=== PATIENT | female | born 1980 | race Caucasian/White ===

== ENCOUNTER 2024-02-28 18:18 | Emergency (ER) | payer MEDICAID, SELFPAY ==
[2024-02-28 18:19] VITALS: BMI 20.3
[2024-02-28 19:29] VITALS: BP 136/89; PULSE 93; RESP 18; TEMP 36.9; O2SAT 98
--- NOTE | 2024-02-28 19:43 | PD.EDBACK ---
ED Back Injury Pain RME/HPI General Chief Complaint: Back Pain/Injury Stated Complaint: SEVERE LOWER BACK & NECK PAIN; NUMBNESS TO HANDS Time Seen by Provider: 02/28/24 18:23 Arrival date/time: 02/28/24 18:18 43F with history of DDD lumbar surgery about 7 months ago presents to ED with 1 week of worsening pain. Patient usually takes [place] 10s, but they aren't working it. Patient just wants meds and declines diagnostics. Patient hasn't had follow-up with [place] surgeon for a few months due to loss of insurance. Limitations: no limitations Related Data Home Medications ?Medication ?Instructions ?Recorded ?Confirmed duloxetine 60 mg capsule,delayed 60 mg PO QDAY 04/06/22 04/25/22 release progesterone micronized 200 mg 200 mg PO QHS 04/06/22 04/25/22 capsule propranolol 20 mg tablet 20 mg PO TID 04/06/22 04/25/22 zolpidem 5 mg tablet 5 mg PO QHS PRN 04/06/22 04/25/22 Previous Rx's ?Medication ?Instructions ?Recorded albuterol sulfate 90 mcg/actuation 2 puff inhalation Q6H PRN 12/04/22 aerosol inhaler (Ventolin HFA) shortness of breath or wheezing #8.5 grams azithromycin 500 mg tablet See Rx Instructions PO .COMPLEX #6 12/04/22 tabs Allergies Allergy/AdvReac Type Severity Reaction Status Date / Time No Known Allergies Allergy Verified 02/28/24 18:24 Review of Systems Review of Systems Systems Reviewed: All systems reviewed, normal except as documented Constitutional Constitutional: Reports system reviewed and no additional complaints, except as documented, Denies fever(s) and Denies headache(s) ENT Ears, Nose, Mouth, and Throat: Denies disequilibrium and Denies headache(s) Cardiovascular Cardiovascular: Reports system reviewed and no additional complaints, except as documented, Denies chest pain and Denies dyspnea Respiratory Respiratory: Reports system reviewed and no additional complaints, except as documented, Denies cough and Denies dyspnea Gastrointestinal Gastrointestinal: Reports system reviewed and no additional complaints, except as documented, Denies abdominal pain, Denies nausea and Denies vomiting Musculoskeletal Musculoskeletal: Reports as per HPI and Reports back pain Neurologic Neurologic: Reports system reviewed and no additional complaints, except as documented, Denies confusion, Denies disequilibrium and Denies headache(s) Psychiatric Psychiatric: Denies confusion Past Medical History Past Medical History CARDIAC: Negative Cardiac Disorders or Congestive Heart Failure RESPIRATORY: Negative Chronic Obstructive Pulmonary Disease (COPD) or Asthma GENITOURINARY: Negative Renal Disease MUSCULOSKELETAL: Positive Musculoskeletal Disorders and Fibromyalgia ENDOCRINE: Negative Diabetes Mellitus Type 1 or Diabetes Mellitus Type 2 HEMATOLOGIC: Positive Anemia; Negative Sickle Cell Disease OTHER HISTORY: Negative Blood Transfusions Social History SMOKING STATUS: Never smoker SUBSTANCE USE: does not use ED Exam General Limitations: Present no limitations General appearance: Present alert and in no apparent distress Head Head exam: Present atraumatic Eye Eye exam: Present normal appearance, PERRL and EOMI ENT ENT exam: Present normal exam, normal oropharynx and mucous membranes moist Neck Neck exam: Present normal inspection, full ROM and trachea midline Chest Chest inspection: Present normal inspection and symmetric chest wall rise Respiratory Respiratory exam: Present normal lung sounds bilaterally Cardiovascular Cardiovascular exam: Present regular rate, normal rhythm and normal heart sounds Abdominal Exam Abdominal exam: Present soft and normal bowel sounds Extremities Exam Extremities exam: Present normal inspection and full ROM Back Exam Back exam: Present full ROM and other (back brace) Neurological Exam Neurological exam: Present alert, oriented X3 and CN II-XII intact Psychiatric Psychiatric exam: Present normal affect and normal mood Skin Skin exam: Present warm, dry, intact and normal color Course Quality Measures none Orders Category Date Time Status CYCLObenzaPRINE [Flexeril] Med 02/28/24 19:36 Discontinued 5 mg PO X1 ONE Diazepam [Valium] Med 02/28/24 20:52 Discontinued 10 mg PO X1 ONE Gabapentin [Neurontin] Med 02/28/24 19:36 Discontinued 300 mg PO X1 ONE Morphine Inj Med 02/28/24 20:52 Discontinued 5 mg IM X1 ONE Vital Signs Vital signs: Vital Signs Temperature 98.5 F 02/28/24 19:29 Pulse Rate 93 02/28/24 19:29 Respiratory Rate 18 02/28/24 19:29 Blood Pressure 136/89 H 02/28/24 19:29 Pulse Oximetry (%) 98 02/28/24 19:29 Oxygen Delivery Method Room Air 02/28/24 19:29 O2 at 98% on RA and WNLs Back Pain / Injury MDM Narrative MDM Narrative:: 43F with history of DDD lumbar surgery about 7 months ago presents to ED with 1 week of worsening pain. Patient usually takes [place] 10s, but they aren't working it. Patient just wants meds and declines diagnostics. Patient hasn't had follow-up with [place] surgeon for a few months due to loss of insurance. Physical exam reveals patient in back brace. Gait normal. ROM of extremities and neck normal. Patient is afebrile, calm, and alert. Meds and activities counselor given. Patient data External records reviewed:: [facility] previous records Clinical information provided by:: patient Social determinants that could affect healthcare access:: none Patient has the following chronic illnesses:: back surgery How is presenting disease/condition affected by chronic disease/condition?: exacerbated by Evaluation data The following diagnostics were reviewed and interpreted by me:: other (specify) (none) Lab and/or radiology exams considered but not ordered:: not ordered Interpretation Summary: n/a Medications / Prescriptions Medications or Prescriptions considered but not ordered:: ordered Medication administrations:: Medication Administration History Discontinued Medications Cyclobenzaprine HCl (Cyclobenzaprine 5 Mg Tablet) 5 mg PO X1 ONE Stop: 02/28/24 19:37 Last Admin: 02/28/24 19:45 Dose: 5 mg Documented By: GM Diazepam (Diazepam 5 Mg Tablet) 10 mg PO X1 ONE Stop: 02/28/24 20:53 Last Admin: 02/28/24 21:03 Dose: 10 mg Documented By: OA Gabapentin (Gabapentin 300 Mg Capsule) 300 mg PO X1 ONE Stop: 02/28/24 19:37 Last Admin: 02/28/24 19:45 Dose: 300 mg Documented By: GM Morphine Sulfate (Morphine Sulf Inj 10 Mg/Ml Vial) 5 mg IM X1 ONE Stop: 02/28/24 20:53 Last Admin: 02/28/24 21:02 Dose: 5 mg Documented By: OA above Consultations Consultation(s) initiated? (list below): No Diagnosis Differential diagnosis back pain/injury: lumbar radiculopathy, sciatica, strain of lumbar region, renal colic, pyelonephritis, thoracic back pain, AAA, discitis and other (back pain) Most likely diagnosis given after review of the tests above:: back pain Admission Indicated Admission indicated?: not indicated Admission Request Was there a request for admission?: No Disposition Plan Disposition Plan: Discharge Discharge Attestation Discharge Attestation: The patient and all family members were given an opportunity to ask questions and understood the discharge instructions. Discharge instructions specifically effects, indications for sooner follow up or return to the emergency department, and the expected course of current diagnosis. Patient condition: Stable Discharge Plan Plan Patient Disposition: HOME (Self Care) Disposition Comment: STable Prescriptions/Referrals Prescriptions/Med Rec: No Action propranolol 20 mg tablet 20 mg PO TID duloxetine 60 mg capsule,delayed release(DR/EC) 60 mg PO QDAY progesterone micronized 200 mg capsule 200 mg PO QHS zolpidem 5 mg tablet 5 mg PO QHS PRN albuterol sulfate [Ventolin HFA] 90 mcg/actuation HFA aerosol inhaler 2 puff inhalation Q6H PRN (Reason: shortness of breath or wheezing) Qty: 8.5 0RF azithromycin 500 mg tablet See Rx Instructions .ROUTE .COMPLEX Qty: 6 0RF Rx Instructions: take 500 mg today (day 1), then 250 mg for 4 days (days 2-5) Referrals: Lori Carmona FNP [Primary Care Provider] - In 1 week Problem List Clinical Impression: Back pain Patient/Caregiver Discharge Instructions Additional Instructions: Please follow-up with PCP within 24-48 hours and return immediately if symptoms worsen. Recommend follow-up with surgeon. If you haven't tried it before, can ask PCP about Cymbalta for chronic back pain. Print Language: Amharic Stand Alone Forms: Patient Portal Info Letter OR[place]O/SANDY Supervising Physician ORLANDO/SANDY Supervising Physician: Dr. Thomas
[2024-02-28] MEDS: CYCLObenzaPRINE 5 MG TABLET PO (19:45)
[2024-02-28] MEDS: GABAPENTIN 300 MG CAPSULE PO (19:45)
[2024-02-28] MEDS: MORPHINE SULF INJ 10 MG/ML VIAL 5 MG IM (21:02)
[2024-02-28] MEDS: DIAZEPAM 5 MG TABLET 10 MG PO (21:03)
== END 2024-02-28 21:46 | disposition home or self-care (01) ==
PROVIDERS: Emergency Provider Emergency Medicine; PCP Nurse Practitioner Family
DX: M54.50 Low back pain, unspecified (principal); M54.2 Cervicalgia
CPT/HCPCS: 81001; 81025; 96372; 99284; J2270; A9270

== ENCOUNTER 2024-12-03 13:12 | Emergency (ER) | payer MEDICAID, SELFPAY ==
--- NOTE | 2024-12-03 13:17 | EKG_ITS ---
[facility] Test Date: 2024-12-03 Pat Name: CLARY TRIPP Department: Room: - Gender: Female Motion Designer: : 1980 Requested By: ED Temporary Provider Order Number: [id number] Reading MD: ED Temporary Provider Measurements Intervals [place] Rate: 85 P: 59 VA: 143 QRS: 83 QRSD: 82 T: 67 QT: 350 QTc: 418 Interpretive Statements SINUS RHYTHM No previous ECG available for comparison /store/S0/[id number]/ecg/[id number].pdf
[2024-12-03 13:19] VITALS: BP 114/80; PULSE 84; RESP 18; TEMP 36.7; O2SAT 100
--- NOTE | 2024-12-03 13:25 | XR_ITS ---
Examination: PA lateral chest 2 views TECHNIQUE: Upright PA lateral chest 2 views Date and time: December 03, 2024, 1410 hours, comparison 12/04/2022 INDICATIONS: Chest pain shortness of breath dizziness fever weakness today. FINDINGS: Moderate hyperexpansion Normal heart size No lobar pneumonia Moderate osteopenia IMPRESSION: Moderate hyperexpansion No lobar pneumonia
--- NOTE | 2024-12-03 13:25 | PD.EDRME ---
Rapid Medical Screening Exam RME Arrival date/time: 12/03/24 13:12 44-year-old female presents to the emergency room today for complaint of chest pain today Chief Complaint: Chest Pain Vital signs: Vital Signs Temperature 98.0 F 12/03/24 13:19 Pulse Rate 84 12/03/24 13:19 Respiratory Rate 18 12/03/24 13:19 Blood Pressure 114/80 12/03/24 13:19 Pulse Oximetry (%) 100 12/03/24 13:19 Oxygen Delivery Method Room Air 12/03/24 13:19
[2024-12-03 14:03] LABS: Basophils # (Auto) 0.0 Thou/mm3 (0.0-0.2); Basophils % (Auto) 0 % (0-2.5); Eosinophils # (Auto) 0.1 Thou/mm3 (0.0-0.5); Eosinophils % (Auto) 1 % (0-10); Hematocrit 46.1 % (36.0-46.0); Hemoglobin 14.5 g/dL (12.0-16.0); Immature Granulocytes Auto 0.02 Thou/mm3 (0.00-0.00); Lymphocytes # (Auto) 2.2 Thou/mm3 (1.0-4.8); Lymphocytes % (Auto) 33 % (10-50); Mean Corpuscular HGB Conc 31.5 g/dl (31.0-37.0); Mean Corpuscular Hemoglobin 27.9 pg (25.0-35.0); Mean Corpuscular Volume 89 fL (80-100); Monocytes # (Auto) 0.4 Thou/mm3 (0.0-0.8); Monocytes % (Auto) 6 % (0-12); Neutrophils # (Auto) 3.9 Thou/mm3 (1.8-7.7); Neutrophils % (Auto) 59 % (37-80); Nucleated Red Blood Cell # 0.00 Thou/mm3 (0.00-0.00); Nucleated Red Blood Cell % 0 /100 WBC (0); Platelet Count 323 Thou/mm3 (140-440); RDW Standard Deviation 41.1 fL (36.4-46.3); Red Blood Count 5.20 Miln/mm3 (4.00-5.20); White Blood Count 6.6 Thou/mm3 (3.6-11.0)
[2024-12-03 14:15] LABS: HCG,Qualitative Serum Positive
[2024-12-03 14:21] LABS: Alanine Aminotransferase 11 U/L (10-49); Albumin, Serum 4.8 gm/dL (3.5-5.0); Albumin/Globulin Ratio 1.7 (1.2-2.2); Alkaline Phosphatase 66 U/L (46-116); Anion Gap 12 (7-16); Aspartate Amino Transferase 21 U/L (0-34); BUN/Creatinine Ratio 13 Ratio (12-20); Bilirubin,Total 0.3 mg/dL (0.3-1.2); Blood Urea Nitrogen 9 mg/dL (9-23); Calcium 10.3 mg/dL (8.3-10.6); Calcium (Corrected) 10.3 mg/dL (8.5-10.1); Carbon Dioxide 24.7 mMol/L (20.0-31.0); Chloride 105 mMol/L (98-107); Creatinine (Component) 0.7 mg/dL (0.6-1.3); Estimated Creatinine Clearance 99.7 mL/min (>60); Globulin 2.9 gm/dL (2.3-3.5); Glucose 88 mg/dL (74-106); Osmolality,Calculated 280 (275-295); Potassium 4.5 mMol/L (3.4-5.1); Sodium 142 mMol/L (136-145); Total Protein 7.7 gm/dL (5.7-8.2); Troponin I < 0.002 ng/mL (0.0-0.045); eGFR > 60 See Note
[2024-12-03 14:29] LABS: D-Dimer < 250 ng/mL (<600)
--- NOTE | 2024-12-03 17:31 | PD.EDADULT ---
ED General RME/HPI General Chief complaint: Chest Pain Stated complaint: CHEST PAIN SINCE YESTERDAY, SOB, CLAMMY Time Seen by Provider: 12/03/24 16:54 Arrival date/time: 12/03/24 13:12 RME / HPI RME / HPI narrative: 44-year-old female presents to the emergency room today for complaint of chest pain today today earlier this morning, described as substernal burning-like sensation, severity moderate. Pain radiates to both chest. Associated with feeling shortness of breath and clammy. Patient also complaining of epigastric pain that comes and goes severity mild. No fever no vomiting no other complaints noted. Patient had bilateral tubal ligation in the past. Related Data Home Medications ?Medication ?Instructions ?Recorded ?Confirmed duloxetine 60 mg capsule,delayed 60 mg PO QDAY 04/06/22 04/25/22 release progesterone micronized 200 mg 200 mg PO QHS 04/06/22 04/25/22 capsule propranolol 20 mg tablet 20 mg PO TID 04/06/22 04/25/22 zolpidem 5 mg tablet 5 mg PO QHS PRN 04/06/22 04/25/22 Previous Rx's ?Medication ?Instructions ?Recorded albuterol sulfate 90 mcg/actuation 2 puff inhalation Q6H PRN 12/04/22 aerosol inhaler (Ventolin HFA) shortness of breath or wheezing #8.5 grams azithromycin 500 mg tablet See Rx Instructions PO .COMPLEX #6 12/04/22 tabs famotidine 40 mg tablet (Pepcid) 40 mg PO BID #30 tabs 12/03/24 ondansetron HCl 4 mg tablet 4 mg PO Q8H PRN nausea and 12/03/24 vomiting 5 days #20 tabs Allergies Allergy/AdvReac Type Severity Reaction Status Date / Time No Known Allergies Allergy Verified 12/03/24 13:15 Review of Systems Review of Systems Narrative Review of Systems: Review of system reviewed and within normal limits except mentioned in HPI ED Exam Narrative Physical exam: VITAL SIGNS: Reviewed. GENERAL APPEARANCE: Alert and interactive, follows commands, no acute distress, HEAD AND FACE: Non-traumatic. ENT: PERRL, pink conjunctivitis, eyelid no trauma, Mucous membrane moist. NECK: Supple, nontender, no nuchal rigidity. CHEST: No tenderness, no crepitus, no paradoxical movement, no retractions. LUNGS: Clear, well ventilated, symmetric, no rales, no wheezing, no ronchi, no stridor, good breath sounds bilaterally. HEART: Regular rate, regular rhythm, no murmur, no gallops. ABDOMEN: Soft, positive bowel sounds, nondistended, no guarding, nontender, no rebound, no masses, RECTAL: Deferred. GENITAL: Deferred. NEUROLOGICAL: Gross motor function intact sensory function intact, Appropriate for age. MUSCULOSKELETAL: low back nontender, full range of motion. EXTREMITIES: Nontender, full range of motion. SKIN: Color pink, dry, no rash, no lacerations, no abrasions, no contusions. LYMPHATICS: Deferred. Course Quality Measures none Orders Category Date Time Status EKG (ED ONLY) *Do not use* NOW Care 12/03/24 13:17 Completed EKG (ED Only) Stat Exams 12/03/24 13:17 Draft XR chest 2V Stat Exams 12/03/24 13:25 Completed Beta HCG,Quantitative Stat Lab 12/03/24 13:31 Completed CBC Stat Lab 12/03/24 13:31 Completed Comprehensive Metabolic Panel Stat Lab 12/03/24 13:31 Completed D-Dimer Stat Lab 12/03/24 13:31 Completed HCG,Qualitative Serum Stat Lab 12/03/24 13:31 Completed Troponin I Stat Lab 12/03/24 13:31 Completed Vital Signs Vital signs: Vital Signs Temperature 98.0 F 12/03/24 13:19 Pulse Rate 84 12/03/24 13:19 Respiratory Rate 18 12/03/24 13:19 Blood Pressure 114/80 12/03/24 13:19 Pulse Oximetry (%) 100 12/03/24 13:19 Oxygen Delivery Method Room Air 12/03/24 13:19 Discharge Plan Plan Patient Disposition: HOME (Self Care) Discharge Disposition comment: stable Prescriptions/Referrals Prescriptions/Med Rec: New famotidine [Pepcid] 40 mg tablet 40 mg PO BID Qty: 30 0RF ondansetron HCl 4 mg tablet 4 mg PO Q8H PRN (Reason: nausea and vomiting) 5 Days Qty: 20 0RF No Action propranolol 20 mg tablet 20 mg PO TID duloxetine 60 mg capsule,delayed release(DR/EC) 60 mg PO QDAY progesterone micronized 200 mg capsule 200 mg PO QHS zolpidem 5 mg tablet 5 mg PO QHS PRN albuterol sulfate [Ventolin HFA] 90 mcg/actuation HFA aerosol inhaler 2 puff inhalation Q6H PRN (Reason: shortness of breath or wheezing) Qty: 8.5 0RF azithromycin 500 mg tablet See Rx Instructions .ROUTE .COMPLEX Qty: 6 0RF Rx Instructions: take 500 mg today (day 1), then 250 mg for 4 days (days 2-5) Referrals: No Primary/Family,Physician [Primary Care Provider] - In 1 week Problem List Clinical Impression: Chest pain due to GERD, Elevated serum hCG Patient/Caregiver Discharge Instructions Discharge Activity: activity as tolerated Education Materials: ED GERD (Adult) Additional Instructions: Thank you for the opportunity for serving you today. You are stable for discharged . You are advised to: Follow-up with your PCP in 1 to 2 days Return to ED for worsening of symptoms Increase oral fluids Take medication as prescribed As per PCP for referral to [facility] regarding your hCG today that was read as 9. Print Language: Swedish Stand Alone Forms: Spokeable Award Info., Patient Portal Info Letter [place]/SANDY Supervising Physician [place]/SANDY Supervising Physician: MD Kendall MDM Narrative MDM hospital course (for use when minimal MDM required): 44-year-old female presents to the emergency room today for complaint of chest pain today today earlier this morning, described as substernal burning-like sensation, severity moderate. Pain radiates to both chest. Associated with feeling shortness of breath and clammy. Patient also complaining of epigastric pain that comes and goes severity mild. No fever no vomiting no other complaints noted. Patient had bilateral tubal ligation in the past. Patient's laboratory workup all came back unremarkable except positive for hCG of 9. Chest x-ray unremarkable. EKG showed normal sinus rhythm, ventricular rate of 85 bpm, no ST segment elevation depression noted. Patient troponin is normal also. Repeat troponin is not any at this time patient is having chest pain for more than 6 hours prior to ER visit. Patient was advised to see [facility] regarding positive hCG. She told me there is no way she could be . She just got a year ago.
[2024-12-03 17:49] LABS: Beta HCG,Quantitative 9 mIU/mL (<5.0)
[2024-12-03 18:47] VITALS: BP 122/78; PULSE 88
== END 2024-12-03 18:48 | disposition home or self-care (01) ==
PROVIDERS: Nurse Practitioner Primary Care; Emergency Provider Emergency Medicine
DX: R07.9 Chest pain, unspecified (principal); K21.9 Gastro-esophageal reflux disease without esophagitis
CPT/HCPCS: 36415; 71046; 80053; 84484; 84702; 84703; 85025; 85379; 93005; 99283